=== PATIENT | female | born 1960 | race Caucasian/White ===

== ENCOUNTER 2022-05-16 11:41 | Inpatient (IN) ==
[2022-05-16] MEDS ORDERED: 0.9 % Sodium Chloride 1,000 ML ONE (11:55)
[2022-05-16] MEDS ORDERED: *HR* FentaNYL (PF) 100 MCG/2 ML VIAL ONE (12:36)
[2022-05-16] MEDS ORDERED: *HR* Midazolam HCl 2 MG/2 ML VIAL ONE (12:37)
[2022-05-16] MEDS ORDERED: 0.9 % Sodium Chloride 500 ML ONE (12:37)
[2022-05-16] MEDS ORDERED: Acetaminophen 325 MG TABLET PO PRN (14:08)
[2022-05-16] MEDS ORDERED: Nitroglycerin 0.4 MG TAB.SUBL SL PRN (14:15)
[2022-05-16] MEDS ORDERED: Naloxone 0.4 MG/ML INJ IVP PRN (15:35)
[2022-05-16] MEDS ORDERED: traZODone 50 MG TABLET PO SCH (21:00)
[2022-05-16] MEDS: CeFAZolin 2 GM/120 ML BAG IVPB SCH (21:25)
[2022-05-17 02:36] LABS: BUN/Creatinine Ratio 10 (6-26); Blood Urea Nitrogen 12 mg/dL (8-23); Carbon Dioxide 34 mEq/L (23-29); Chloride 99 mEq/L (98-107); Potassium 3.7 mEq/L (3.5-5.1); Sodium 138 mEq/L (136-145)
[2022-05-17 02:38] LABS: Calcium 8.8 mg/dL (8.6-10.3); Magnesium 1.8 mg/dL (1.6-2.6); Potassium 3.7 mEq/L (3.5-5.1)
[2022-05-17] MEDS: CeFAZolin 2 GM/120 ML BAG IVPB SCH (05:36)
[2022-05-17] MEDS: *HR* OxyCODONE Immed Rel 5 MG TABLET PO PRN ×2 (06:18→15:15)
[2022-05-17] MEDS ORDERED: Metoprolol XL (24 HR) Succ 50 MG TAB.ER.24H PO SCH (09:00)
[2022-05-17] MEDS: DilTIAZem CD (24hr) 120 MG CAP.ER.24H PO SCH (09:28)
[2022-05-17] MEDS: FLUoxetine 20 MG CAPSULE PO SCH (09:28)
[2022-05-17] MEDS: lisinopriL 20 MG TABLET PO SCH (09:28)
[2022-05-17] MEDS: hydroCHLOROthiazide 25 MG TABLET PO SCH (09:28)
[2022-05-17] MEDS: Tiotropium 10 INH DOSE IH SCH (10:56)
[2022-05-18] MEDS: Tiotropium 10 INH DOSE IH SCH (07:50)
[2022-05-18] MEDS: Metoprolol XL (24 HR) Succ 50 MG TAB.ER.24H PO SCH (10:31)
[2022-05-18] MEDS: FLUoxetine 20 MG CAPSULE PO SCH (10:31)
[2022-05-18] MEDS: DilTIAZem CD (24hr) 120 MG CAP.ER.24H PO SCH (10:31)
[2022-05-18] MEDS: lisinopriL 20 MG TABLET PO SCH (10:31)
[2022-05-18] MEDS: hydroCHLOROthiazide 25 MG TABLET PO SCH (10:31)
[2022-05-19] MEDS: hydroCHLOROthiazide 25 MG TABLET PO SCH (09:20)
[2022-05-19] MEDS: FLUoxetine 20 MG CAPSULE PO SCH (09:20)
[2022-05-19] MEDS: lisinopriL 20 MG TABLET PO SCH (09:20)
[2022-05-19] MEDS: DilTIAZem CD (24hr) 120 MG CAP.ER.24H PO SCH (09:20)
[2022-05-19] MEDS: Metoprolol XL (24 HR) Succ 50 MG TAB.ER.24H PO SCH (09:20)
[2022-05-19] MEDS ORDERED: Apixaban 5 MG TABLET PO SCH (09:30)
[2022-05-19] MEDS: Tiotropium 10 INH DOSE IH SCH (11:15)
[2022-05-19] MEDS ORDERED: Furosemide 40 MG/4 ML VIAL IVP ONE (11:39)
[2022-05-19 12:19] LABS: Potassium 3.4 mEq/L (3.5-5.1)
[2022-05-19 16:51] VITALS: BP 129/75; PULSE 62; TEMP 98.5; O2SAT 90
[2022-05-19 17:06] LABS: Adenovirus Not Detected (Not Detect); Bordetella Pertussis Not Detected (Not Detect); Chlamydophila pneumoniae Not Detected (Not Detect); Coronavirus 229E Not Detected (Not Detect); Coronavirus HKU1 Not Detected (Not Detect); Coronavirus NL63 Not Detected (Not Detect); Coronavirus OC43 Not Detected (Not Detect); Human Metapneumovirus Not Detected (Not Detect); Human Rhinovirus/Enterovirus Not Detected (Not Detect); Influenza A Subtype 2009 H1 Not Detected (Not Detect); Influenza B Not Detected (Not Detect); Mycoplasma pneumoniae Not Detected (Not Detect); Parainfluenza Virus 1 Not Detected (Not Detect); Parainfluenza Virus 2 Not Detected (Not Detect); Parainfluenza Virus 3 Not Detected (Not Detect); Parainfluenza Virus 4 Not Detected (Not Detect); Respiratory Syncytial Virus Not Detected (Not Detect); SARS-CoV-2 Not Detected (Not Detect)
== END 2022-05-19 18:20 | disposition left against medical advice (07) | DRG 171 ==
LOC: INVDIALAB 11:41 → 2ANU 11:41
PROVIDERS: ADMIT Internal Medicine Clinical Cardiac Electrophysiology; ATTEND Internal Medicine Clinical Cardiac Electrophysiology